=== PATIENT | female | born 1955 | race Caucasian/White ===

== ENCOUNTER 2025-09-03 15:00 | Inpatient (IN) ==
[2025-09-03 15:34] LABS: Basophils # (Auto) 0.04 K/mcL (0.00-0.30); Basophils % (Auto) 0.5 % (0.0-2.0); Eosinophils # (Auto) 0.08 K/mcL (0.00-0.70); Eosinophils % (Auto) 1.0 % (0.0-7.0); Hematocrit 41.4 % (34.1-44.9); Hemoglobin 13.7 g/dL (11.2-15.7); Lymphocytes # (Auto) 2.55 K/mcL (1.50-4.80); Lymphocytes % (Auto) 32.3 % (15.5-49.0); Mean Corpuscular HGB Conc 33.1 g/dL (31.0-36.0); Monocytes # (Auto) 0.66 K/mcL (0.10-0.90); Monocytes % (Auto) 8.4 % (1.0-12.0); Neutrophils % (Auto) 57.5 % (38.0-78.0); Platelet Count 255 K/mcL (140-440); RBC 4.29 M/mcL (3.59-5.38); WBC 7.9 K/mcL (4.5-11.0)
[2025-09-03 15:53] LABS: INR 1.4 (0.9-1.1); Prothrombin Time 18.3 sec (11.9-14.5)
[2025-09-03 16:05] LABS: Anion Gap 13.0 (8.0-16.0); Blood Urea Nitrogen 17 mg/dL (8-23); Calcium 9.4 mg/dL (8.6-10.4); Carbon Dioxide 25 mmol/L (22-30); Chloride 103 mmol/L (96-108); Glucose 85 mg/dL (70-105); Potassium 3.2 mmol/L (3.3-5.1); Sodium 141 mmol/L (133-145)
[2025-09-03] MEDS: DIAZEPAM 10 MG/2 ML SYRINGE IV ONE (16:16)
[2025-09-03] MEDS: fentaNYL 100 MCG/2 ML VIAL IV ONE ×2 (16:16→18:39)
[2025-09-03] MEDS ORDERED: ACETAMINOPHEN 325 MG TABLET PO PRN (18:58)
[2025-09-03] MEDS: ONDANSETRON 4 MG/2 ML VIAL IV PRN (19:40)
[2025-09-03] MEDS: POTASSIUM CHLORIDE 20 MEQ TABLET PO SCH (19:41)
[2025-09-03] MEDS: HYDROmorphone 0.5 MG/0.5 ML SYRINGE IV PRN (19:43)
[2025-09-03] MEDS: SENNOSIDES 1 TABLET PO SCH (22:26)
[2025-09-03] MEDS: 0.9 % SODIUM CHLORIDE 1,000 ML IV SCH (22:47)
[2025-09-03] MEDS: 0.9 % SODIUM CHLORIDE 10 ML SYRINGE IV SCH (22:47)
[2025-09-04 06:08] LABS: ALT/SGPT 26 U/L (<40); AST/SGOT 19 U/L (<32); Albumin 3.4 gm/dL (3.2-5.2); Albumin/Globulin Ratio 1.3 (1.0-2.3); Alkaline Phosphatase 66 U/L (39-117); Anion Gap 10.0 (8.0-16.0); Bilirubin,Direct 0.3 mg/dL (<0.3); Bilirubin,Total 0.8 mg/dL (0.1-1.0); Blood Urea Nitrogen 16 mg/dL (8-23); Calcium 8.9 mg/dL (8.6-10.4); Carbon Dioxide 26 mmol/L (22-30); Chloride 107 mmol/L (96-108); Globulin 2.6 gm/dL (2.2-3.7); Glucose 82 mg/dL (70-105); Phosphorous 3.8 mg/dL (2.5-4.5); Potassium 3.7 mmol/L (3.3-5.1); Sodium 143 mmol/L (133-145); Triglycerides 151 mg/dL (<150); Uric Acid 5.3 mg/dL (2.5-8.0)
[2025-09-04] MEDS: buPROPion 150 MG TAB.XL.24H PO SCH (08:26)
[2025-09-04] MEDS: OMEPRAZOLE 20 MG CAPSULE PO SCH (08:26)
[2025-09-04] MEDS: DILTIAZEM 120 MG CAP.XL.24H PO SCH (08:27)
[2025-09-04] MEDS: ALLOPURINOL 100 MG TABLET PO SCH (08:27)
[2025-09-04] MEDS: METOPROLOL SUCCINATE 50 MG TAB.XL.24H PO SCH (08:27)
[2025-09-04] MEDS ORDERED: DEXAMETHASONE 10 MG/ML VIAL ONE (14:00)
[2025-09-04] MEDS ORDERED: ONDANSETRON 4 MG/2 ML VIAL ONE (14:00)
[2025-09-04] MEDS ORDERED: LIDOCAINE 2% PF 5 ML VIAL ONE (14:00)
[2025-09-04] MEDS ORDERED: TRANEXAMIC ACID 1,000 MG/10 ML VIAL ONE (14:00)
[2025-09-04] MEDS ORDERED: ROCURONIUM 10 MG/ML ML IV ONE (14:00)
[2025-09-04] MEDS ORDERED: PROPOFOL 200 MG/20 ML VIAL IV ONE (14:01)
[2025-09-04] MEDS ORDERED: fentaNYL 100 MCG/2 ML VIAL ONE (14:02)
[2025-09-04] MEDS ORDERED: MAGNESIUM SULFATE 2 GM/50 ML BAG IV ONE (14:05)
[2025-09-04] MEDS: ceFAZolin 2 GM in DEXTROSE 5% IN WATER 50 ML IV SCH (14:54)
[2025-09-04] MEDS ORDERED: SUGAMMADEX SODIUM 200 MG/2 ML VIAL IV ONE (15:26)
[2025-09-04] MEDS ORDERED: VASOPRESSIN 20 UNIT/ML VIAL ONE (16:00)
[2025-09-04] MEDS: VANCOMYCIN 1 GM VIAL TOPICAL SCH (16:27)
[2025-09-04] MEDS ORDERED: MEPERIDINE 25 MG/ML VIAL IV PRN (16:56)
[2025-09-04] MEDS ORDERED: LACTATED RINGERS 250 ML IV PRN (16:56)
[2025-09-04] MEDS ORDERED: fentaNYL 100 MCG/2 ML VIAL IV PRN (16:56)
[2025-09-04] MEDS ORDERED: NALOXONE HCL 0.4 MG/ML VIAL IV PRN (16:56)
[2025-09-04] MEDS ORDERED: IPRATROPIUM/ALBUTEROL 3 ML AMPUL.NEB NEB PRN (16:56)
[2025-09-04] MEDS ORDERED: diphenhydrAMINE 50 MG/ML VIAL IV PRN (16:56)
[2025-09-04] MEDS ORDERED: LACTATED RINGERS 1,000 ML IV SCH ×2 (17:00→17:30)
[2025-09-04] MEDS ORDERED: BENZOCAINE/MENTHOL 1 LOZENGE PO PRN (17:16)
[2025-09-04] MEDS ORDERED: METHOCARBAMOL 500 MG TABLET PO PRN (17:16)
[2025-09-04] MEDS: METHOCARBAMOL 1,000 MG/10 ML VIAL IV PRN (17:30)
[2025-09-04] MEDS: ONDANSETRON 4 MG/2 ML VIAL IV PRN (17:34)
[2025-09-04] MEDS: TRANEXAMIC ACID 1,000 MG/10 ML VIAL IV ONE ×2 (17:37→18:02)
[2025-09-04] MEDS ORDERED: ASPIRIN 81 MG TAB.CHEW CHEWED SCH (21:00)
[2025-09-04] MEDS: 0.9 % SODIUM CHLORIDE 10 ML SYRINGE IV SCH (21:00)
[2025-09-04] MEDS: ACETAMINOPHEN 500 MG TABLET PO PRN (21:10)
[2025-09-04] MEDS: KETOROLAC 15 MG/ML VIAL IV PRN (21:10)
[2025-09-04 22:01] LABS: Bacteria,Urine 0 /hpf (0); Bilirubin,Urine Negative (Negative); Color,Urine Yellow; Glucose,Urine (UA) Negative (Negative); Ketones,Urine 40(2+) mg/dL (Negative); Leukocyte Esterase,Urine Negative /uL (Negative); Mucus,Urine Few /hpf; PH,Urine 6.0 (5.0-9.0); Protein,Urine 30 mg/dL (Negative); Specific Gravity,Urine > 1.030 (1.000-1.035); Urobilinogen,Urine Normal
[2025-09-05 06:35] LABS: ALT/SGPT 30 U/L (<40); AST/SGOT 29 U/L (<32); Albumin 3.2 gm/dL (3.2-5.2); Albumin/Globulin Ratio 1.1 (1.0-2.3); Alkaline Phosphatase 66 U/L (39-117); Anion Gap 10.0 (8.0-16.0); Bilirubin,Direct < 0.2 mg/dL (0-0.3); Bilirubin,Total 0.4 mg/dL (0.1-1.0); Blood Urea Nitrogen 16 mg/dL (8-23); Calcium 8.9 mg/dL (8.6-10.4); Carbon Dioxide 22 mmol/L (22-30); Chloride 106 mmol/L (96-108); Globulin 2.9 gm/dL (2.2-3.7); Glucose 132 mg/dL (70-105); Phosphorous 3.9 mg/dL (2.5-4.5); Potassium 4.0 mmol/L (3.3-5.1); Sodium 138 mmol/L (133-145); Triglycerides 87 mg/dL (<150); Uric Acid 4.4 mg/dL (2.5-8.0)
[2025-09-05] MEDS: ENOXAPARIN 40 MG/0.4 ML SYRINGE SQ SCH (08:05)
[2025-09-05 11:51] VITALS: TEMP 96.8; O2SAT 100
[2025-09-05] MEDS ORDERED: APIXABAN 5 MG TABLET PO SCH (21:00)
== END 2025-09-05 14:00 | disposition home health service (06) | DRG 522 ==
LOC: ED 15:00 → MEDSUR 18:47
PROVIDERS: ADMIT Internal Medicine; ATTEND Internal Medicine